=== PATIENT | female | born 1955 | race Caucasian/White ===

== ENCOUNTER 2016-12-04 11:37 | Emergency (ER) | payer OTHER ==
[~2016-12-04 11:37] MED LIST: ASAB PO; AZOR1 TA1 OR; AZOR1 TA2 PO; CAT1 PO; CRESTOR10 PO; FISH OIL1200 MG PO; GLUCPH PO; MICROZIDE PO; TRICOR145 PO
== END 2016-12-04 12:51 | disposition home or self-care (01) ==
LOC: ER 11:37
PROC: 2W3SXYZ Immobilization of Right Foot using Other Device (ICD-10-PCS; principal; 2016-12-04)
DX: S93.401A Sprain of unspecified ligament of right ankle, initial encounter (principal); I10 Essential (primary) hypertension; F17.200 Nicotine dependence, unspecified, uncomplicated; E11.9 Type 2 diabetes mellitus without complications; Z90.710 Acquired absence of both cervix and uterus; Z79.82 Long term (current) use of aspirin; Z79.84 Long term (current) use of oral hypoglycemic drugs; Z79.899 Other long term (current) drug therapy; X50.1XXA Overexertion from prolonged static or awkward postures, initial encounter
CPT/HCPCS: 73610-RT; 99283; A9270-GY